=== PATIENT | male | born 1995 | race Caucasian/White ===

== ENCOUNTER 2019-08-20 11:34 | Emergency (ER) | payer MEDICAID ==
[~2019-08-20] VITALS: Ht 170.2 cm; Wt 56.2 kg
[2019-08-20 11:39] VITALS: Ht 170.2 cm; Wt 56.2 kg
[2019-08-20 13:19] LABS: BASOPHIL % 1.4 % (0-2); PLATELET COUNT 309 x10^3mcL (130-400); RED CELL DISTRIBUTION WIDTH 13.2 % (11.5-14.5)
[2019-08-20 13:31] LABS: CALCIUM 8.7 mg/dL (8.5-10.1); CARBON DIOXIDE 30.6 mmol/L (21-32); CHLORIDE SERUM 102 mmol/L (98-107); CREATININE SERUM 0.8 mg/dL (0.7-1.3); GFR1 > 60 mL/min; GLUCOSE SERUM 97 mg/dL (74-106); POTASSIUM SERUM 4.2 mmol/L (3.5-5.1); SODIUM SERUM 140 mmol/L (136-145)
[2019-08-20 13:44] LABS: ALBUMIN 4.6 g/dL (3.4-5.0); ALKALINE PHOSPHATASE 69 U/L (46-116); ALT/SGPT 28 U/L (16-63); AST/SGOT 20 U/L (15-37); BILIRUBIN TOTAL 0.8 mg/dL (0.20-1.00); T4(THYROXINE) 8.9 ug/dL (4.7-13.3); TOTAL PROTEIN, SERUM 8.1 g/dL (6.4-8.2)
[2019-08-20 14:20] LABS: AMPHETAMINE QUAL UR NONE DETECTED (See below)
[2019-08-20 15:49] VITALS: BP 103/65
== END 2019-08-20 15:53 | disposition home or self-care (01) ==
LOC: ED 11:34
PROVIDERS: Emergency Medicine
DX: M62.838 Other muscle spasm (principal); R42 Dizziness and giddiness; R00.2 Palpitations; F41.1 Generalized anxiety disorder; F12.10 Cannabis abuse, uncomplicated
CPT/HCPCS: 36415; 36600; J1885; Q0092

== ENCOUNTER 2019-12-04 02:14 | Emergency (ER) | payer SELFPAY ==
[~2019-12-04] VITALS: Ht 167.6 cm; Wt 54.6 kg
[2019-12-04 06:42] VITALS: BP 119/80
== END 2019-12-04 06:42 | disposition home or self-care (01) ==
LOC: ED 02:14
DX: M79.10 Myalgia, unspecified site (principal); M25.512 Pain in left shoulder; R07.89 Other chest pain